=== PATIENT | female | born 1980 | race Caucasian/White ===

== ENCOUNTER → 2020-10-06 15:49 | Outpatient (BNVA) | payer OTHER, SELFPAY | PROVIDERS: Visit Provider Surgery | DX: D17.1 Benign lipomatous neoplasm of skin and subcutaneous tissue of trunk (principal) | CPT/HCPCS: 99202 ==

== ENCOUNTER 2020-10-30 07:49 | Outpatient (REF) | payer OTHER, SELFPAY ==
[2020-10-30 07:38] VITALS: BP 122/58; PULSE 78; RESP 16; TEMP 36.3; O2SAT 100; BMI 23.1
--- NOTE | 2020-10-30 08:27 | P.OP_ITS ---
Operative Note Operative Note Date of Service: 10/30/20 Narrative: Preoperative diagnosis: lipoma right posterior buttock Postoperative diagnosis: same Procedure: excision of lipoma right posterior buttock Surgeon: Reno Han MD [employer] Operator: no physician Anesthesia: local Indications for procedure: 40-year-old female with a painful lump in the posterior right buttock which is soft and felt to be either a lipoma or soft sebaceous cyst Operative findings: lipoma right posterior buttock Specimen: lipoma right posterior buttock Estimated blood loss: 2 mL Complications: none Procedure details: patient was brought to the minor surgery suite and placed in a prone position. The site of surgery was confirmed by the patient in the right posterior buttock. After assuring informed consent the patient's right buttock was prepped with Betadine and draped in a sterile fashion. Local anesthesia consisting of lidocaine 1% with epinephrine was then infiltrated around the lipoma. Elliptical incision was then created around the lipoma. Sharp dissection was then used to dissect the lipoma from the surrounding subcutaneous tissue. Lesion was excised and sent to pathology for further examination. Skin was then reapproximated using interrupted 3-0 nylon sutures. 2 x 2 gauze and paper tape were then applied. The patient tolerated the procedure well. She was discharged to home in stable condition.
--- NOTE | 2020-10-30 08:30 | MHC.SHP ---
Pre-Procedural Eval Section A Date of Service: 10/30/20 The patient is an INPATIENT: No Changes since office visit: No Cold of Flu in the past 2 weeks, No New Medical Problems, No Changes in Medication and No Patient answered all questions The History & Physical has been completed within 30 days and I have reviewed it.: Yes Section B Chief Complaint: Lipoma of buttock Allergies: Allergies Allergy/AdvReac Type Severity Reaction Status Date / Time No Known Allergies Allergy Verified 10/06/20 16:02 Plan Diagnosis/Plan: Unchanged I have reviewed the history and physical and performed a pertinent physical examination on my patient. No changes have occurred unless specified.
== END 2020-10-30 07:50 | disposition home or self-care (01) ==
LOC: HO.MS 07:49
PROVIDERS: PCP Physician Assistant Medical; Visit Provider Surgery
PROC: (CPT 21931; principal; 2020-10-30 08:00)
DX: D17.39 Benign lipomatous neoplasm of skin and subcutaneous tissue of other sites (principal)
CPT/HCPCS: 21931; 88304

== ENCOUNTER → 2020-11-06 10:44 | Outpatient (BNVA) | payer OTHER, SELFPAY | PROVIDERS: PCP Physician Assistant Medical; Referring Provider Physician Assistant Medical; Visit Provider Surgery | DX: D17.1 Benign lipomatous neoplasm of skin and subcutaneous tissue of trunk (principal) | CPT/HCPCS: 99212 ==